=== PATIENT | male | born 1990 | race Caucasian/White ===

== ENCOUNTER 2019-08-07 12:07 | Outpatient (CLI) | payer BC ==
[2019-08-07 13:51] LABS: Hemoglobin 14.7 g/dL (14.0-18.0); Mean Corpuscular HGB CONC 33.9 g/dL (32.0-36.0); Mean Corpuscular Hemoglobin 29.5 pg (27.0-31.0); Mean Corpuscular Volume 86.9 fL (78.0-98.0); Mean Platelet Volume 8.1 fL (7.4-10.4); Platelet Count 257 thou/uL (130-400); RBC Distribution Width 11.1 % (11.5-14.5); White Blood Cell (WBC) Count 9.2 thou/uL (4.8-10.8)
[2019-08-07 14:04] LABS: Anion Gap 14 mmol/L (10-20); BUN (Urea Nitrogen) 12 mg/dL (8.9-20.6); Calc. Creatinine Clearance 0 mL/min (70-130); Calcium 9.5 mg/dL (7.8-10.44); Carbon Dioxide 25 mmol/L (22-29); Chloride 104 mmol/L (98-107); Estimated GFR-MDRD Greater than 90; Glucose 84 mg/dL (70-105); Sodium 139 mmol/L (136-145)
--- NOTE | 2019-08-08 19:57 | EKG ---
Test Reason : Blood Pressure : / mmHG Vent. Rate : 090 BPM Atrial Rate : 090 BPM P-R Int : 150 ms QRS Dur : 110 ms QT Int : 358 ms P-R-T Axes : 056 099 005 degrees QTc Int : 437 ms Normal sinus rhythm with sinus arrhythmia Rightward axis Incomplete right bundle branch block Possible Inferior infarct , age undetermined Abnormal ECG No previous ECGs available Confirmed by REAL GRAHAM, DR. Steel ([id number]) on 08/08/2019 7:57:42 PM Referred By: ZACHARY Confirmed By:DR. Damián NOBLE MD
== END 2019-08-07 12:08 | disposition home or self-care (01) ==
LOC: LABBT 12:07
PROVIDERS: ATTEND Neurological Surgery
DX: Z01.818 Encounter for other preprocedural examination (principal); M54.16 Radiculopathy, lumbar region
CPT/HCPCS: 80048; 85027; 93005; 93010

== ENCOUNTER → 2019-08-15 | Day surgery (SDC) | payer BC ==
[2019-08-07 12:30] VITALS: BMI 39.5
[~2019-08-15] MED LIST: Fentanyl 100 MCG/2 ML VIAL ONE; HYDROcodone/Acetaminophen 10/325 mg Tablet ONE; Meperidine HCl/PF 25 MG/ML VIAL ONE; Midazolam HCl 2 mg/2 ml Vial ONE; SUGAMMADEX SODIUM 200 MG/2 ML VIAL ONE; Sodium Chloride 0.9% 0 ML ONE
--- NOTE | 2019-08-15 10:28 | OP ---
DATE OF PROCEDURE: 08/15/2019 TIP MENDER: Tyler Cordero MD PROCEDURE PERFORMED: Left L5-S1 microdiskectomy. DESCRIPTION OF PROCEDURE: The patient was brought to the operating room and intubated. He was rolled in a prone position on gel-filled chest rolls. An incision was made exposing the left L5-S1, and level was confirmed by x-ray. We performed left L5-S1 hemilaminectomy, identified the left S1 nerve root and beneath that there was a large extruded disk fragment removed in multiple large pieces. This was done with the operative microscope and microdissection techniques. The wound was extensively irrigated. MAC hemostasis was secured. Vancomycin powder was applied, and the wound was closed in anatomic layers. Job ID: [id number]
== END ==
LOC: SDC 05:59
PROVIDERS: ATTEND Neurological Surgery
PROC: 0SB40ZZ Excision of Lumbosacral Disc, Open Approach (ICD-10-PCS; principal; 2019-08-15)
PROC: 01NR0ZZ Release Sacral Nerve, Open Approach (ICD-10-PCS; principal; 2019-08-15)
DX: M51.17 Intervertebral disc disorders with radiculopathy, lumbosacral region (principal); Z79.899 Other long term (current) drug therapy
CPT/HCPCS: 76000; J0131; J0690; J2175; J2250; J3010; J3370; J3490